=== PATIENT | female | born 1945 | race Caucasian/White ===

== ENCOUNTER → 2017-10-26 | Outpatient (CLI) | payer MEDICARE, OTHER ==
[~2017-10-26] MED LIST: ASPIRIN325 PO; ASPIRIN81 M2 PO; B COMPLEX-VITA1 EACH; CALCIUM 600 +1 EAC5 PO; CALCIUM OYSTER500 MG; CELEBREX 200 M200 MG PO; COLACE100 MG PO; FIBER PO; FIBER1 GM PO; HYDROCODON-ACE1 EAC7 PO; LEVOTHYROXINE0.05 MG PO; LISINOPRIL5 MG PO; MINIPRIN81 MG; NORCO 5-325 TA1 EACH PO; OXYCODONE HCL 55 MG PO; PRILOSEC 20 MG20 MG PO; SIMVASTATIN40 MG PO; SYNTHROID; VITAMIN D400 UNI1; VITAMIN E1000 UNI3; VITAMIN E1000 UNI3 PO; Vitamin D PO; XARELTO10 M1 PO; ZOCOR
== END ==
LOC: M.RAD 13:42
DX: M84.374A Stress fracture, right foot, initial encounter for fracture (principal); X58.XXXA Exposure to other specified factors, initial encounter; Y93.89 Activity, other specified; Y92.89 Other specified places as the place of occurrence of the external cause; Y99.8 Other external cause status

== ENCOUNTER → 2017-12-08 | Outpatient (CLI) | payer MEDICARE, OTHER | LOC: M.RAD 09:25 | DX: M84.374D Stress fracture, right foot, subsequent encounter for fracture with routine healing (principal); M19.071 Primary osteoarthritis, right ankle and foot ==

== ENCOUNTER → 2018-05-19 | Outpatient (CLI) | payer MEDICARE, OTHER | LOC: M.RAD 09:32 | DX: Z12.31 Encounter for screening mammogram for malignant neoplasm of breast (principal) ==

== ENCOUNTER → 2018-06-15 | Outpatient (CLI) | payer MEDICARE, OTHER | LOC: M.RAD 09:12 | DX: E28.39 Other primary ovarian failure (principal); M85.89 Other specified disorders of bone density and structure, multiple sites; M81.0 Age-related osteoporosis without current pathological fracture ==

== ENCOUNTER → 2018-08-11 | Outpatient (CLI) | payer MEDICARE, OTHER | LOC: M.MRI 07:57 | DX: M51.36 Other intervertebral disc degeneration, lumbar region (principal); M51.26 Other intervertebral disc displacement, lumbar region; M43.16 Spondylolisthesis, lumbar region ==

== ENCOUNTER → 2019-05-22 | Outpatient (CLI) | payer MEDICARE, OTHER | LOC: M.RAD 07:40 | DX: Z12.31 Encounter for screening mammogram for malignant neoplasm of breast (principal) ==

== ENCOUNTER → 2020-05-30 | Outpatient (CLI) | payer MEDICARE, OTHER | LOC: M.RAD 07:20 | PROVIDERS: ATTEND Family Medicine | DX: Z12.31 Encounter for screening mammogram for malignant neoplasm of breast (principal) ==

== ENCOUNTER → 2020-07-04 | Outpatient (CLI) | payer MEDICARE, OTHER | LOC: M.RAD 08:56 | PROVIDERS: ATTEND Family Medicine | DX: M81.0 Age-related osteoporosis without current pathological fracture (principal); M85.88 Other specified disorders of bone density and structure, other site ==

== ENCOUNTER → 2021-06-23 | Outpatient (CLI) | payer MEDICARE, OTHER | LOC: M.RAD 09:01 | PROVIDERS: ATTEND Family Medicine | DX: Z12.31 Encounter for screening mammogram for malignant neoplasm of breast (principal) ==